=== PATIENT | male | born 2000 | race Caucasian/White ===

== ENCOUNTER → 2020-01-13 | Outpatient (CLI) | payer OTHER | LOC: MHCPAIN 10:49 | DX: M47.817 Spondylosis without myelopathy or radiculopathy, lumbosacral region (principal); M54.5 Low back pain; M54.6 Pain in thoracic spine; G89.29 Other chronic pain; M54.16 Radiculopathy, lumbar region; M79.18 Myalgia, other site | CPT/HCPCS: G0463 ==

== ENCOUNTER → 2020-01-15 | Outpatient (CLI) | payer OTHER | LOC: MHCPAIN 09:31 | DX: M79.18 Myalgia, other site (principal) | CPT/HCPCS: J1040 ==

== ENCOUNTER → 2020-05-11 | Outpatient (CLI) | payer OTHER | LOC: MHCPAIN 09:15 | DX: M79.10 Myalgia, unspecified site (principal); G89.29 Other chronic pain; M54.5 Low back pain; M54.6 Pain in thoracic spine | CPT/HCPCS: G0463 ==

== ENCOUNTER → 2020-05-13 | Outpatient (CLI) | payer OTHER | LOC: MHCPAIN 14:36 | DX: M79.18 Myalgia, other site (principal); M54.6 Pain in thoracic spine | CPT/HCPCS: J1040 ==

== ENCOUNTER → 2020-09-08 | Outpatient (CLI) | payer OTHER | LOC: MHCPAIN 09:01 | DX: M79.18 Myalgia, other site (principal); M54.6 Pain in thoracic spine; M54.2 Cervicalgia; G89.29 Other chronic pain | CPT/HCPCS: G0463 ==

== ENCOUNTER → 2020-09-15 | Outpatient (CLI) | payer OTHER | LOC: MHCPAIN 09:04 | DX: M79.18 Myalgia, other site (principal); M54.6 Pain in thoracic spine; M54.2 Cervicalgia | CPT/HCPCS: J1040 ==